=== PATIENT | male | born 1960 | race Caucasian/White ===

== ENCOUNTER → 2017-06-25 | Outpatient (REF) | payer OTHER ==
[2017-06-25 18:39] LABS: ALBUMIN 3.8 GM/DL (3.2-5.2); ALBUMIN/GLOBULIN RATIO 1.09 (1.00-1.93); ALKALINE PHOSPHATASE 68 U/L (45-117); ALT/SGPT 28 U/L (12-78); ANION GAP 10 MEQ/L (8-16); AST/SGOT 23 U/L (7-37); BILIRUBIN,TOTAL 0.9 MG/DL (0.2-1.0); BLOOD UREA NITROGEN 15 MG/DL (7-18); CALCIUM LEVEL 8.9 MG/DL (8.5-10.1); CARBON DIOXIDE LEVEL 26 MEQ/L (21-32); CHLORIDE LEVEL 105 MEQ/L (98-107); CHOLESTEROL LEVEL 197 MG/DL (<200); CREATININE FOR GFR 1.04 MG/DL (0.70-1.30); GLOMERULAR FILTRATION RATE > 60.0 (>56); GLUCOSE, FASTING 80 MG/DL (70-105); POTASSIUM SERUM 4.4 MEQ/L (3.5-5.1); SODIUM LEVEL 141 MEQ/L (136-145); TOTAL PROTEIN 7.3 GM/DL (6.4-8.2); TRIGLYCERIDES LEVEL 162 MG/DL (<150)
[2017-06-25 19:00] LABS: MEAN CORPUSCULAR HEMOGLOBIN 31.6 pg (27.0-33.0); MEAN CORPUSCULAR VOLUME 90.4 fl (80.0-96.0); PLATELET COUNT, AUTOMATED 167 10^3/uL (150-450); RED CELL DISTRIBUTION WIDTH 12.8 % (11.5-14.5); WHITE BLOOD COUNT 6.3 10^3/uL (4.0-10.0)
[2017-06-25 20:32] LABS: SUSPECT SAMPLE POS FLAG
[2017-06-27 12:22] LABS: FERRITIN 31 NG/ML (26-388); PERCENT SATURATION 38.2 % (19.7-50.0); TOTAL IRON BINDING CAPACITY 359 UG/DL (250-450)
== END ==
LOC: M SFHCCLAY 11:35
PROVIDERS: ATTEND Nurse Practitioner Family
DX: B00.9 Herpesviral infection, unspecified (principal); Z13.220 Encounter for screening for lipoid disorders; D58.2 Other hemoglobinopathies

== ENCOUNTER → 2017-07-01 | Outpatient (REF) | payer OTHER | LOC: M SFHCCLAY 08:13 | PROVIDERS: ATTEND Nurse Practitioner Family | DX: D58.2 Other hemoglobinopathies (principal) ==

== ENCOUNTER → 2017-07-08 | Outpatient (REF) | payer OTHER ==
[2017-07-08 13:06] LABS: ALBUMIN 3.8 GM/DL (3.2-5.2); ALBUMIN/GLOBULIN RATIO 1.09 (1.00-1.93); ALKALINE PHOSPHATASE 64 U/L (45-117); ALT/SGPT 23 U/L (12-78); ANION GAP 9 MEQ/L (8-16); AST/SGOT 23 U/L (7-37); BILIRUBIN,TOTAL 1.5 MG/DL (0.2-1.0); BLOOD UREA NITROGEN 21 MG/DL (7-18); CALCIUM LEVEL 9.1 MG/DL (8.5-10.1); CARBON DIOXIDE LEVEL 27 MEQ/L (21-32); CHLORIDE LEVEL 104 MEQ/L (98-107); CHOLESTEROL LEVEL 228 MG/DL (<200); GLOMERULAR FILTRATION RATE > 60.0 (>56); GLUCOSE, FASTING 91 MG/DL (70-105); SODIUM LEVEL 140 MEQ/L (136-145); TOTAL PROTEIN 7.3 GM/DL (6.4-8.2); TRIGLYCERIDES LEVEL 134 MG/DL (<150)
== END ==
LOC: M SFHCCLAY 07:06
PROVIDERS: ATTEND Nurse Practitioner Family
DX: E78.5 Hyperlipidemia, unspecified (principal); D58.2 Other hemoglobinopathies

== ENCOUNTER → 2017-08-12 | Outpatient (CLI) | payer OTHER | LOC: M CLY 13:40 | DX: M95.8 Other specified acquired deformities of musculoskeletal system (principal) ==

== ENCOUNTER → 2017-08-14 | Outpatient (REF) | payer OTHER ==
[2017-08-14 14:45] LABS: ALBUMIN 3.8 GM/DL (3.2-5.2); ALBUMIN/GLOBULIN RATIO 1.15 (1.00-1.93); ALKALINE PHOSPHATASE 71 U/L (45-117); ALT/SGPT 50 U/L (12-78); ANION GAP 8 MEQ/L (8-16); AST/SGOT 34 U/L (7-37); BILIRUBIN,TOTAL 0.8 MG/DL (0.2-1.0); BLOOD UREA NITROGEN 17 MG/DL (7-18); CALCIUM LEVEL 8.8 MG/DL (8.5-10.1); CARBON DIOXIDE LEVEL 30 MEQ/L (21-32); CHLORIDE LEVEL 106 MEQ/L (98-107); CHOLESTEROL LEVEL 136 MG/DL (<200); CHOLESTEROL RISK RATIO 3.162 (<5); CREATININE FOR GFR 1.11 MG/DL (0.70-1.30); GLOMERULAR FILTRATION RATE > 60.0 (>56); GLUCOSE, FASTING 108 MG/DL (70-100); HDL CHOLESTEROL 43 MG/DL (>40); LDL CHOLESTEROL 38.8 MG/DL (<100); NON-HDL-C 93 MG/DL; POTASSIUM SERUM 4.2 MEQ/L (3.5-5.1); SODIUM LEVEL 144 MEQ/L (136-145); TOTAL PROTEIN 7.1 GM/DL (6.4-8.2); TRIGLYCERIDES LEVEL 271 MG/DL (<150)
== END ==
LOC: M SFHCCLAY 07:11
DX: E78.5 Hyperlipidemia, unspecified (principal)

== ENCOUNTER → 2017-08-14 | Outpatient (REF) | payer OTHER ==
[2017-08-14 16:33] LABS: CARBOXYHEMOGLOBIN 1.4 % (0.0-1.5)
[2017-08-14 17:11] LABS: TESTOSTERONE 129 NG/DL (241-827)
[2017-08-14 17:13] LABS: PROSTATIC SPECIFIC AG MONITOR 0.42 NG/ML (< 4.0)
== END ==
LOC: M LAB REF 15:11
DX: R71.8 Other abnormality of red blood cells (principal)
CPT/HCPCS: 84403

== ENCOUNTER 2017-09-10 07:48 | Day surgery (SDC) | payer OTHER ==
[2017-09-10] MEDS: NS 1,000 ML IV (08:35)
[2017-09-10] MEDS ORDERED: PROPOFOL 200 MG/20 ML VIAL As Ordered ×2 (08:50→09:18)
[2017-09-10] MEDS ORDERED: LIDOCAINE 2% INJ 100 MG/5 ML SDV (FOR ANES.) As Ordered (08:56)
== END 2017-09-10 09:54 | disposition home or self-care (01) ==
LOC: M OPP 07:48
DX: Z12.11 Encounter for screening for malignant neoplasm of colon (principal); K64.4 Residual hemorrhoidal skin tags; I10 Essential (primary) hypertension; E78.5 Hyperlipidemia, unspecified; M19.90 Unspecified osteoarthritis, unspecified site; M54.2 Cervicalgia; M54.89 Other dorsalgia; D75.89 Other specified diseases of blood and blood-forming organs; Z79.899 Other long term (current) drug therapy; J00 Acute nasopharyngitis [common cold]
CPT/HCPCS: 45378

== ENCOUNTER → 2018-06-17 | Outpatient (REF) | payer OTHER ==
[2018-06-17 12:05] LABS: FREE T4 0.85 NG/DL (0.76-1.46)
[2018-06-17 12:05] LABS: TESTOSTERONE 283 NG/DL (241-827)
== END ==
LOC: M LABDRAWC 11:18
DX: E29.1 Testicular hypofunction (principal)
CPT/HCPCS: 84146

== ENCOUNTER → 2018-10-14 | Outpatient (REF) | payer OTHER ==
[~2018-10-14] MED LIST: ATOR1TAB19; MOTR200T44 PO; TIZA2TA
[2018-10-18 00:08] LABS: TESTOSTERONE %FREE+WEAKLY BOUN 20.9 % (9.0-46.0); TESTOSTERONE TOTAL 383 ng/dL (264-916)
== END ==
LOC: M LABDRAWC 11:16
PROVIDERS: ATTEND Nurse Practitioner Family
DX: E29.1 Testicular hypofunction (principal)

== ENCOUNTER → 2024-10-22 | Outpatient (REF) | payer OTHER ==
[2024-10-22 13:33] LABS: CREATININE FOR GFR 0.85 MG/DL (0.70-1.30); GLOMERULAR FILTRATION RATE > 60.0 (>49)
== END ==
LOC: M LABWUC 12:10 → M LAB REF 12:10
PROVIDERS: ATTEND Physician Assistant Surgical
DX: Z00.00 Encounter for general adult medical examination without abnormal findings (principal); M54.50 Low back pain, unspecified

== ENCOUNTER 2025-06-16 08:58 | Outpatient (RCR) | payer MEDICARE, OTHER | END 2025-06-20 | LOC: M PT 08:58 | PROVIDERS: ATTEND Orthopaedic Surgery Orthopaedic Surgery of the Spine | DX: S12.000A Unspecified displaced fracture of first cervical vertebra, initial encounter for closed fracture (principal); X58.XXXA Exposure to other specified factors, initial encounter; Y92.9 Unspecified place or not applicable; Y93.9 Activity, unspecified; Y99.9 Unspecified external cause status ==

== ENCOUNTER 2025-06-29 10:37 | Outpatient (RCR) | payer MEDICARE, OTHER | END 2025-07-21 | LOC: M PT 10:37 | PROVIDERS: ATTEND Orthopaedic Surgery Orthopaedic Surgery of the Spine | DX: S12.000A Unspecified displaced fracture of first cervical vertebra, initial encounter for closed fracture (principal) ==

== ENCOUNTER → 2025-07-01 | Outpatient (CLI) | payer MEDICARE, OTHER ==
[~2025-07-01] MED LIST changes: +LIDOCAINE 1% MDV 20 ML VIAL SC SCH
[2025-07-01 14:25] VITALS: BP 151/74; TEMP 98; O2SAT 98
== END ==
LOC: M IRPRO 13:42
PROVIDERS: ATTEND Nurse Practitioner Family
DX: E04.1 Nontoxic single thyroid nodule (principal)